=== PATIENT | male | born 1990 | race Caucasian/White ===

== ENCOUNTER 2020-08-02 12:07 | Emergency (ER) | payer SELFPAY ==
[~2020-08-02] VITALS: Ht 172.7 cm; Wt 72.6 kg
[2020-08-02 12:26] VITALS: BP 130/78
[2020-08-02] MEDS ORDERED: Azithromycin 250mg tab ORAL ONE (12:30)
[2020-08-02] MEDS ORDERED: Lidocaine 1% MPF 10mg/ml 5ml INJ ONE (12:30)
[2020-08-02 12:39] LABS: APPEARANCE,URINE CLEAR; BILIRUBIN, URINE NEGATIVE (NEGATIVE); COLOR,URINE PALE YELLOW; GLUCOSE, URINE (UA) NEGATIVE (NEGATIVE); KETONES,URINE 1+ (NEGATIVE); LEUKOCYTE ESTERASE ,URINE 2+ (NEGATIVE); NITRITE,URINE NEGATIVE (NEGATIVE); PH,URINE 6 (4.5-8.0); PROTEIN,URINE NEGATIVE (NEGATIVE); UROBILINOGEN,URINE NORMAL MG/DL (0.0-1.0)
[2020-08-02] MEDS ORDERED: Bicillin LA 1.2MMU/2ML SYR IM ONE ×2 (12:45)
--- NOTE | 2020-08-02 13:33 | Emergency Room Report ---
History of Present Illness General Chief Complaint: Male Urogenital Problems Source: Patient Present Illness HPI 30-year-old male with no known significant past medical history here complaining of 1 week of penile swelling and painful rash left lateral side of penis after being sexually active. Also complains of scrotal pain and swelling. Denies any penile discharge, complains of dysuria urinary frequency. Denies any hematuria, fever and chills, suprapubic pain. Has not taken medication for symptom relief. Denies any trauma. Allergies: Coded Allergies: No Known Allergies (Unverified , 08/02/20) COVID-19 Screening Contact w/high risk pt: No Experienced COVID-19 symptoms?: No COVID-19 Testing performed SOFTWARE QUALITY ASSURANCE SPECIALIST: No - a week ago COVID-19 Screening: Negative COVID-19 COVID-19 Testing Source: clinic Patient History Past Medical History: see triage record Past Surgical History: none Pertinent Family History: none Immunizations: UTD Reviewed Nursing Documentation: PMH: Agreed; PSxH: Agreed Nursing Documentation-PMH Past Medical History: No Stated History Review of Systems All Other Systems: negative except mentioned in HPI Physical Exam Vital Signs Date Time Temp Pulse Resp B/P (MAP) Pulse Ox O2 Delivery O2 Flow Rate FiO2 08/02/20 12:08 97.9 123 17 130/78 (95) 98 Room Air Sp02 EP Interpretation: reviewed, normal General Appearance: no apparent distress, alert, GCS 15, non-toxic Head: normocephalic, atraumatic Eyes: bilateral eye normal inspection, bilateral eye PERRL ENT: hearing grossly normal, normal pharynx, no angioedema, normal voice Neck: full range of motion, supple/symm/no masses Respiratory: chest non-tender, lungs clear, normal breath sounds, speaking full sentences Cardiovascular #1: regular rate, rhythm, no edema Gastrointestinal: normal bowel sounds, non tender, soft, non-distended, no guarding, no rebound Genitourinary: no CVA tenderness, scrotum normal, other - He also advised to return lateral site is noted, patient not circumcised and stable to retract Musculoskeletal: back normal Neurologic: alert, motor strength/tone normal, oriented x3, sensory intact, responsive, speech normal Psychiatric: judgement/insight normal, memory normal, mood/affect normal, no suicidal/homicidal ideation Skin: normal color Lymphatic: no adenopathy Medical Decision Making PA Attestation All my diagnosis and treatment plans were reviewed ad discussed with my supervising physician Dr. Atkinson Diagnostic Impression: Primary Impression: Syphilis Additional Impressions: Scrotal pain Penile swelling UTI (urinary tract infection) ER Course 30-year-old male with no known significant past medical history here complaining of 1 week of penile swelling and painful rash left lateral side of penis after being sexually active. Also complains of scrotal pain and swelling. Denies any penile discharge, complains of dysuria urinary frequency. Denies any hematuria, fever and chills, suprapubic pain. Has not taken medication for symptom relief. Denies any trauma. Ddx considered but are not limited to: UTI, chlamydia, Gonorrhea, syphilis, HIV, herpes 1 or 2, epididymitis, testicular torsion, hydrocele, varicocele, phimosis, paraphimosis Vital signs: are WNL, pt. is afebrile H&PE are most consistent with : Syphilis, scrotal pain, penile swelling, UTI ORDERS: UA, urince cx, scrotal ultrasound, Keflex, prednisone ED INTERVENTIONS: Penicillin G, Rocephin, azithromycin, dexamethasone DISCHARGE: At this time pt. is stable for d/c to home. Will provide printed patient care instructions, and any necessary prescriptions. Care plan and follow up instructions have been discussed with the patient prior to discharge. Ad vised patient to take medication as directed, follow-up with urologist, if worsening symptoms return to the emergency room CT/MRI/US Diagnostic Results CT/MRI/US Diagnostic Results : Imaging Test Ordered: Scrotal ultrasound Impression Comparison: none Findings:The right testicle measures for 0.5cm in length. It demonstrates normal echogenicity. Speckled calcifications are seen throughout the parenchyma. No focal abnormality otherwise. Normal Doppler flow. Normal epididymis. There is a small hydrocele. There is questionably a small varicocele The left testicle measures 4.4 cm in length. It demonstrates normal echogenicity and normal Doppler flow. Punctate calcifications are seen throughout the parenchyma. This is symmetric with the other side. No other focal abnormality.. Normal epididymis. Impression: No acute abnormality. No evidence of testicular torsion or scrotal inflammation Incidental finding of testicular microlithiasis bilaterally. Small right hydrocele and equivocal small right varicocele Last Vital Signs Date Time Temp Pulse Resp B/P (MAP) Pulse Ox O2 Delivery O2 Flow Rate FiO2 08/02/20 12:26 97.9 89 17 130/78 98 Room Air Disposition: HOME, SELF-CARE Condition: Stable Scripts Prednisone* (PREDNISONE*) 20 Mg Tablet 40 MG ORAL DAILY for 5 Days, #10 TAB Prov: Ruiz Howe 08/02/20 Cephalexin* (KEFLEX*) 500 Mg Capsule 500 MG ORAL EVERY 12 HOURS for 7 Days, #14 CAP 0 Refills Prov: Ruiz Howe 08/02/20 Referrals: NOT CHOSEN IPA/,REFERRING (PCP) Patient Instructions: Scrotal Swelling, Syphilis, Urinary Tract Infection, [id number] Additional Instructions: Take medication as directed, follow-up with primary care provider and urologist, if worsening symptoms return to the emergency room Ruiz Howe Aug 02, 2020 13:33
[2020-08-02] MEDS ORDERED: CEPHALEXIN500 MG ORAL (13:38)
[2020-08-02] MEDS ORDERED: PREDNISONE20 MG ORAL (13:38)
[2020-08-02 13:45] VITALS: BP 130/78
--- NOTE | 2020-08-02 15:52 | Diagnostic Imaging Report ---
Indications: Testicular swelling and pain Technique: Grayscale and duplex images of the scrotum Comparison: none Findings:The right testicle measures for 0.5cm in length. It demonstrates normal echogenicity. Speckled calcifications are seen throughout the parenchyma. No focal abnormality otherwise. Normal Doppler flow. Normal epididymis. There is a small hydrocele. There is questionably a small varicocele The left testicle measures 4.4 cm in length. It demonstrates normal echogenicity and normal Doppler flow. Punctate calcifications are seen throughout the parenchyma. This is symmetric with the other side. No other focal abnormality.. Normal epididymis. Impression: No acute abnormality. No evidence of testicular torsion or scrotal inflammation Incidental finding of testicular microlithiasis bilaterally. Small right hydrocele and equivocal small right varicocele
== END 2020-08-02 13:45 | disposition home or self-care (01) ==
LOC: EMR 12:39
DX: A53.9 Syphilis, unspecified (principal); N50.82 Scrotal pain; N39.0 Urinary tract infection, site not specified; N43.3 Hydrocele, unspecified; I86.1 Scrotal varices
CPT/HCPCS: 76870; 81003; 87086; 96372; 99284; J0570; J0696; J1100; J0561